=== PATIENT | male | born 1975 | race Caucasian/White ===

== ENCOUNTER 2017-02-21 12:36 | Emergency (ER) | payer OTHER ==
--- NOTE | 2017-02-21 13:29 | EDM.PDOC ---
ED HPI GENERAL MEDICAL PROBLEM - General Chief Complaint: Chemical Exposure Stated Complaint: CHEMICAL BURN WEDNESDAY Time Seen by Provider: 02/21/17 13:00 Source of Information: Reports: Patient History Limitations: Reports: No Limitations - History of Present Illness INITIAL COMMENTS - FREE TEXT/NARRATIVE: 41 year old males presents for evaluation and treatment of chemical inhalation. 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 Patient reports Wednesday he felt a sore throat coming on. States he was hauling more of the chemical than normal. Patient reports the chemicals did not properly ventilate. 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 Patient presented today as his symptoms are worsening and at the urging of his . He does not know what chemicals he hauls but he does know it was no anhydrous ammonia. Patient currently reports a horse voice, sore throat, throat swelling, dysphagia , odynophagia, chest pain, a productive cough and weakness. States the chest pain has been present the last few days. Reports coughing up a green phlem. Reports he has a "light" headache. Denies any nausea, vomiting, fevers, chills, dizziness or lightheadedness. Reports feeling hot and cold. Patient reports he works 7 days a week, 15 hour days. He is off today as it is his '[birth year]. Throat Pain Score (Numeric/FACES): 3 - Related Data Allergies Allergy/AdvReac Type Severity Reaction Status Date / Time No Known Allergies Allergy Verified 02/21/17 12:49 Home Meds: Home Meds Methocarbamol 750 mg PO DAILY 07/02/14 [History] Omeprazole 20 mg PO DAILY 07/02/14 [History] Verapamil [Calan] 80 mg PO DAILY 07/02/14 [History] traMADol [Ultram] 50 mg PO DAILY 07/02/14 [History] Prednisone [IJD: predniSONE] 40 mg PO WITHBREAKFAST #10 tab 02/21/17 [Rx] Past Medical History Cardiovascular History: Reports: Hypertension Gastrointestinal History: Reports: GERD Other Musculoskeletal History: back injury - Past Surgical History Other Musculoskeletal Surgeries/Procedures:: wally knee to hip on left side Social & Family History - Family History Family Medical History: Noncontributory - Tobacco Use Smoking Status *Q: Never Smoker Second Hand Smoke Exposure: No - Alcohol Use Days Per Week of Alcohol Use: 0 - Recreational Drug Use Recreational Drug Use: No ED ROS GENERAL - Review of Systems Review Of Systems: See Below Constitutional: Reports: Weakness. Denies: Fever, Chills HEENT: Reports: Throat Pain, Throat Swelling, Other (reports dysphagia and odynophagia) Respiratory: Reports: Shortness of Breath, Cough, Sputum Cardiovascular: Reports: Chest Pain. Denies: Lightheadedness GI/Abdominal: Denies: Nausea, Vomiting Neurological: Reports: Headache ("slight"). Denies: Dizziness, Syncope ED EXAM, BURN/SMOKE INHALATION - Physical Exam Exam: See Below Exam Limited By: No Limitations General Appearance: Alert, WD/WN, No Apparent Distress Eye Exam: Bilateral Eye: Normal Inspection Ears (Abbreviated): Normal External Exam Nose: Left Anterior: Normal Inspection, Right Anterior: Normal Inspection Mouth/Throat: Hoarse Voice. No: Lip Swelling, Oral Inflammation, Pharyngeal Erythema, Tongue Swelling, Uvular Deviation, Uvular Edema Neck: Normal, Supple, Trachea Midline Respiratory: No Respiratory Distress, Lungs Clear, Normal Breath Sounds, No Accessory Muscle Use Cardiovascular: Normal Peripheral Pulses, Regular Rate, Rhythm, No Murmur Neurological: Alert, Oriented, Normal Cognition Psychiatric: Normal Affect, Normal Mood Skin Exam: Warm, Dry, Normal Color Course - Vital Signs Last Recorded V/S: Last Vital Signs Temp 36.6 C 02/21/17 12:45 Pulse 88 02/21/17 16:15 Resp 16 02/21/17 16:15 BP 120/85 02/21/17 16:15 Pulse Ox 98 02/21/17 16:15 - Orders/Labs/Meds Labs: Laboratory Tests 02/21/17 02/21/17 02/21/17 Range/Units 13:15 13:35 13:35 WBC 12.80 H (4.23-9.07) K/mm3 RBC 5.80 (4.63-6.08) M/mm3 Hgb 16.7 (13.7-17.5) gm/L Hct 46.6 (40.1-51.0) % MCV 80.3 (79.0-92.2) fl MCH 28.8 (25.7-32.2) pg MCHC 35.8 H (32.2-35.5) g/dl RDW Std Deviation 37.5 (35.1-43.9) fL Plt Count 286 (163-337) K/mm3 MPV 10.1 (9.4-12.3) fl Neut % (Auto) 67.9 (34.0-67.9) % Lymph % (Auto) 20.5 L (21.8-53.1) % Brown % (Auto) 9.3 (5.3-12.2) % Eos % (Auto) 1.8 (0.8-7.0) Baso % (Auto) 0.2 (0.1-1.2) % Neut # (Auto) 8.70 H (1.78-5.38) K/mm3 Lymph # (Auto) 2.62 (1.32-3.57) K/mm3 Brown # (Auto) 1.19 H (0.30-0.82) K/mm3 Eos # (Auto) 0.23 (0.04-0.54) K/mm3 Baso # (Auto) 0.02 (0.01-0.08) K/mm3 Puncture Site Rt radial ABG pH 7.41 (7.35-7.45) ABG pCO2 39.8 (35.0-45.0) mmHg ABG pO2 69.0 L (80.0-100.0) mmHg ABG HCO3 24.8 (22.0-26.0) meq/L ABG O2 Saturation 95.5 L (96.0-97.0) % ABG Base Excess 0.7 (-2-2.0) ABG Carboxyhemoglobin 1.7 H (0.00-1.50) %THgb A-a Gradient 16 mmHg O2 Delivery Device Room air FiO2 21.00 (21.00-100.00) % Sodium 140 (136-145) mEq/L Potassium 3.7 (3.5-5.1) mEq/L Chloride 103 (98-107) mEq/L Carbon Dioxide 30 (21-32) mEq/L Anion Gap 10.7 (5-15) BUN 11 (7-18) mg/dL Creatinine 1.4 H (0.7-1.3) mg/dL Est Cr Clr Drug Dosing TNP Estimated GFR (MDRD) 56 (>60) mL/min BUN/Creatinine Ratio 7.9 L (14-18) Glucose 99 (74-106) mg/dL Calcium 9.4 (8.5-10.1) mg/dL Total Bilirubin 0.7 (0.2-1.0) mg/dL AST 25 (15-37) U/L ALT 49 (16-63) U/L Alkaline Phosphatase 119 H (46-116) U/L Total Protein 8.8 H (6.4-8.2) g/dl Albumin 4.5 (3.4-5.0) g/dl Globulin 4.3 gm/dL Albumin/Globulin Ratio 1.1 (1-2) Meds: Medications Discontinued Medications Generic Name Dose Route Start Last Admin Trade Name Freq PRN Reason Stop Dose Admin Iopamidol 80 ml 02/21/17 13:32 02/21/17 13:48 Isovue-300 (61%) IVPUSH 02/21/17 13:33 80 ml ONETIME ONE Administration Ketorolac Tromethamine 30 mg 02/21/17 13:58 02/21/17 14:36 Toradol IVPUSH 02/21/17 13:59 30 mg ONETIME ONE Administration Methylprednisolone Sodium Succinate 125 mg 02/21/17 13:58 02/21/17 14:34 Solu-Medrol IVPUSH 02/21/17 13:59 125 mg ONETIME ONE Administration Sodium Chloride 10 ml 02/21/17 13:30 02/21/17 13:49 Saline Flush FLUSH 10 ml ASDIRECTED PRN Administration Keep Vein Open - Radiology Interpretation Free Text/Narrative:: chest xray shows no acute intrathoracic process. CT of the soft tissues impression per [facility]: Normal neck CT. CT Results Date: 02/21/17 - Re-Assessments/Exams Free Text/Narrative Re-Assessment/Exam: 02/21/17 15:47 Case was discussed with Dr. Woods. He was aware of the patient and agreed with close monitoring throughout the ER stay. I saw no immediate need to intubate the patient. Labs returned. Of note wbc is slightly elevated at 12.80. pO2 is low at 69. The patient was able to find out the chemicals he hauls. He reports them as avancid GL25, SI-9 and myacide GA25. I called poison control at 15:15 for more information on the chemicals. Avancid is a bacerialcide that stops the growth of sulfate reducing bacteria. This chemical can cause chemical irritation. SI-9 is a corrosive and scale inhibitor but could not find much more information. Myacide is 75% water and 25% gluterol. This chemical can cause respiratory irritation. 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 Treatment is to remove from the chemicals. Unsure why at this point his symptoms continue to worsen. He does not have COPD or any respiratory disease that we know of. I reviewed the labs and imaging studies with the patient and his . I informed them of my conservation with poison control. I recommend he use a respirator in the future when hauling these chemicals. He feel improved after the IV toradol and solumedrol. I will discharge him home with instructions to return immediately if his symptoms change or worsen. Discharge instructions as documented. Departure - Departure Time of Disposition: 15:53 Disposition: Home, Self-Care 01 Condition: Fair Clinical Impression: Exposure to chemical inhalation, Exposure to respiratory irritant - Discharge Information Prescriptions: Prednisone [IJD: predniSONE] 40 mg PO WITHBREAKFAST #10 tab Instructions: Chemical Inhalation Injury Referrals: Emma Chauhan DO [Primary Care Provider] - Forms: ED Department Discharge, ED Return to Work/School Form Additional Instructions: Takes the prednisone as prescribed. Start this medication tomorrow. Take 2 tabs or 40 mg daily. Take this medication in the morning. Take nlip-lsk-[id number] ibuprofen as needed for additional sore throat and pain relief. Wear a respirator while at work and exposed to this chemical. Limit exposure as much as possible. Follow-up with your primary care provider this week for a recheck of your symptoms. Note for work given. Please return to the ER immediately if your symptoms change or worsen.
[2017-02-21] MEDS ORDERED: Iopamidol 612 MG/ML 100 ML Bottle IVPUSH ONE (13:32)
[2017-02-21] MEDS: Sodium Chloride 0.9% 10 ML Syringe FLUSH PRN ×2 (13:35→13:49)
[2017-02-21] MEDS ORDERED: methylPREDNISolone Sodium Succinate 125 MG/2 ML SDV IVPUSH ONE (13:58)
[2017-02-21] MEDS ORDERED: Ketorolac 30 MG/ML SDV IVPUSH ONE (13:58)
[2017-02-21 16:26] VITALS: BP 120/85
--- NOTE | 2017-02-22 12:25 | CR ---
Chest: Two views of the chest were obtained. Comparison: No prior study. Heart size and mediastinum are normal. Lungs are clear. Bony structures are within normal limits. Impression: 1. Nothing acute is appreciated on two-view chest x-ray. Diagnostic code #1
--- NOTE | 2017-02-25 07:39 | CT ---
CT neck Technique: Multiple axial sections through the neck were obtained. Reconstructed coronal and sagittal images were reviewed. Comparison: No previous neck imaging. Findings: Small portion of the visualized lung apices are clear. Thyroid gland appears within normal limits. Submandibular and parotid salivary glands are within normal limits. Incidental nasoseptal deviation is seen. Minimal areas of mucosal thickening are seen within the maxillary sinuses. Parapharyngeal soft tissues are symmetric between right and left sides and show no discrete mass or soft tissue swelling. No neck adenopathy is seen. Bone window settings were reviewed which appear within normal limits for the patient's age. Impression: 1. Minimal sinus findings which are felt to be incidental. 2. No additional abnormality is appreciated on CT study of the neck. Diagnostic code #2 Agree with preliminary report issued by [employer] ([facility] preliminary report dictated on 02/21/17, 3:15 PM Central Time)
== END 2017-02-21 16:20 | disposition home or self-care (01) ==
LOC: JD.ED 12:36
DX: Z77.098 Contact with and (suspected) exposure to other hazardous, chiefly nonmedicinal, chemicals (principal); I10 Essential (primary) hypertension; K21.9 Gastro-esophageal reflux disease without esophagitis; Z79.899 Other long term (current) drug therapy
CPT/HCPCS: 36415; 36600; 70491; 71020; 80053; 82375; 82803; 85025; 96374; 96375; 99285; J1885; J2930; J7050; Q9967; 99284

== ENCOUNTER 2022-06-20 04:26 | Emergency (ER) | payer OTHER ==
[2022-06-20] MEDS ORDERED: Ondansetron 4 MG/2 ML SDV IVPUSH ONE (04:48)
[2022-06-20] MEDS ORDERED: Sodium Chloride 0.9% 10 ML Syringe FLUSH PRN ×2 (04:48→07:35)
[2022-06-20] MEDS ORDERED: HYDROmorphone 1 MG/ML Syringe IVPUSH ONE (04:49)
[2022-06-20] MEDS ORDERED: Sodium Chloride 0.9% 1,000 ML IV SCH (05:00)
[2022-06-20] MEDS ORDERED: Iopamidol 612 MG/ML 100 ML Bottle IVPUSH ONE (07:35)
[2022-06-20] MEDS ORDERED: HYDROmorphone 0.5 MG/0.5 ML Syringe IVPUSH ONE (08:13)
[2022-06-20 09:23] VITALS: BP 128/90; PULSE 89
== END 2022-06-20 09:20 | disposition home or self-care (01) ==
LOC: JD.ED 04:26
DX: R10.11 Right upper quadrant pain (principal); R19.7 Diarrhea, unspecified; I10 Essential (primary) hypertension; Z79.899 Other long term (current) drug therapy
CPT/HCPCS: 36415; 74177; 76705; 80053; 81001; 83690; 85025; 86140; 96361; 96374; 96375; 96376; 99284; J1170; J2405; J3490; J7030; Q9967